=== PATIENT | female | born 1930 | race Caucasian/White ===

== ENCOUNTER → 2016-07-09 | Outpatient (CLI) | payer OTHER ==
[2016-07-09 12:07] LABS: BASOPHILS # (AUTO) 0.05 10*3/UL; BASOPHILS % (AUTO) 1.3 % (0-1); EOSINOPHILS % (AUTO) 9.4 % (0-8); HEMOGLOBIN 13.7 g/dL (12.0-16.0); IMM GRAN % (AUTO) 0 % (0-5); IMM GRAN# (AUTO) 0 10*3/UL; LYMPHOCYTES # (AUTO) 0.97 10*3/uL; LYMPHOCYTES % (AUTO) 26.1 % (10-50); MEAN CORPUSCULAR HEMOGLOBIN 30.9 PG (27-31); MEAN CORPUSCULAR HGB CONC 33.4 g/dL (33-37); MEAN PLATELET VOLUME 10.1 FL (7.4-12.2); MONOCYTES % (AUTO) 8.1 % (5-15); NEUTROPHILS # (AUTO) 2.04 10*3/UL; NEUTROPHILS % (AUTO) 55.1 % (50-80); RED BLOOD COUNT 4.43 10^6/uL (4.20-5.40); WHITE BLOOD COUNT 3.71 10^3/uL (4.8-10.8)
[2016-07-09 12:10] LABS: PLATELET MORPHOLOGY COMMENT NORMAL MORPHOLOGY (NORM)
[2016-07-09 12:19] LABS: BILIRUBIN,TOTAL 0.6 mg/dL (0.3-1.2); BUN/CREATININE RATIO 38.33 (6-20); CALCIUM 9.7 mg/dL (8.7-10.7); CREATININE 0.6 mg/dL (0.50-1.20); POTASSIUM 4.5 meq/L (3.8-5.2); TOTAL PROTEIN 7.1 g/dL (6.1-8.0)
== END ==
LOC: MOB LAB 10:40
PROVIDERS: ATTEND Internal Medicine
DX: I10 Essential (primary) hypertension (principal); R42 Dizziness and giddiness; E78.5 Hyperlipidemia, unspecified
CPT/HCPCS: 36415; 80053; 84443; 85025

== ENCOUNTER → 2017-01-07 | Outpatient (CLI) | payer OTHER | LOC: MMPC 11:11 | PROVIDERS: ATTEND Internal Medicine | DX: I10 Essential (primary) hypertension (principal) | CPT/HCPCS: 99213; G0463 ==

== ENCOUNTER 2017-05-24 16:20 | Inpatient (IN) ==
[2017-05-24] MEDS ORDERED: Sodium Chloride 0.9% 1,000 ML PRIMARY IV ONE (16:46)
[2017-05-24 17:25] LABS: BASOPHILS % (AUTO) 0.4 % (0-1); EOSINOPHILS % (AUTO) 6.2 % (0-8); Hematocrit [HCT] 40.6 % (37.0-47.0); Hemoglobin [HGB] 13.6 g/dL (12.0-16.0); MEAN CORPUSCULAR HEMOGLOBIN 31.6 PG (27-31); MEAN CORPUSCULAR HGB CONC 33.5 g/dL (33-37); MEAN CORPUSCULAR VOLUME 94 FL (81-99); MEAN PLATELET VOLUME 7.2 FL (7.4-12.2); NEUTROPHILS % (AUTO) 61.1 % (50-80)
[2017-05-24 17:26] LABS: BASOPHILS # (AUTO) 0.02 10*3/UL; LYMPHOCYTES # (AUTO) 1.24 10*3/uL; MONOCYTES # (AUTO) 0.34 10*3/UL (0.3-0.8); PLATELET MORPHOLOGY COMMENT NORMAL MORPHOLOGY (NORM); RBC MORPHOLOGY COMMENT NORMAL MORPHOLOGY (NORM); WBC MORPHOLOGY COMMENT NORMAL MORPHOLOGY (NORM)
[2017-05-24 17:30] LABS: BLOOD UREA NITROGEN 25 mg/dL (7-22); BUN/CREATININE RATIO 41.66 (6-20); SERUM ALBUMIN 4.2 g/dL (3.5-4.8)
--- NOTE | 2017-05-24 19:12 | PDOC ---
HPI - History of Present Illness Date of Service: 05/24/17 Time of Service: 19:00 Chief Complaint: Right hip pain History of Present Illness: This very pleasant 87-year-old female who is lucid, but somewhat confused on details with some stress from today, who was feeding her cat earlier and bent over to move the cat food when she felt a sudden pain in her right hip. She has been disoriented with some of the pain, but was able to call her friend and she was brought into the emergency room and found to have a right hip dislocation. She's had a prior right hip replacement and a dislocated twice in 2013 this being the third episode overall. There apparently was some discussion about a revision in the past and the patient was told she was a non- candidate but I am not aware what those discussions were. Overall, in addition to her hip pain which seems better controlled with morphine currently, she denies any chest pain, shortness breath, nausea or vomiting. She reaches metabolic equivalents of greater than 4. She does not have any history of stroke, kidney disease, or congestive heart failure, and would be a candidate to proceed with reduction of her hip under sedation or anesthesia with her age being her biggest risk factor for any procedure. In terms of her mental status , I would like to see where she is post surgery and with her hip relocated to determine how much of a risk she would be for any revision down the road from a cognitive standpoint. Past Medical History Medical History: 1. DVT in the left lower extremity. 2. GERD. 3. Cognitive impairment, worse in the setting of hip dislocation. 4. Hypertension. 5. Hyperlipidemia. 6. Osteoporosis. 7. Gait abnormality. 8. Overactive bladder with urge incontinence, not responsive to medications. 9. Hiatal hernia Surgical History: 1. Bilateral hip replacements. 2. Spine surgery. 3. Total vaginal hysterectomy with bilateral salpingo-oophorectomy. 4. Tonsillectomy. 5. Cervical vertebral fusion. 6. Tonsillectomy Pertinent Family History: Mother had diabetes and father had prostate cancer Past Social History: Patient does not smoke or drink. Lives alone. Has 3 children. Patient is retired nurse Tobacco Use: Never Smoker In the Past 12 Months, Have Used or Abuse Any of the Following Substance: None Alcohol Use: None Medication / Allergies Home Medications: Home Medications Medication Instructions Recorded Confirmed Type Calcium Carbonate [Tums] 1 - 2 tab PO Q6H PRN #0 tab.chew 01/08/14 05/24/17 Rx Acetaminophen [Tylenol] 650 mg PO Q4H PRN #25 tab 07/27/14 05/24/17 Rx Nitroglycerin SL Tab [Nitrostat 0.4 mg SL q5min x 3doses PRN #50 02/14/1505/24 History SL Tab] tab Allergies/Adverse Reactions: Allergies 3 Allergy/AdvReac Type Severity Reaction Status Date / Time codeine [Codeine] AdvReac Intermediate nausea/vomi Verified 05/24/17 17:04 ting morphine AdvReac Intermediate nausea/vomi Verified 05/24/17 17:04 ting Review of Systems - Constitutional Constitutional: REPORTS: Other (Negative for fever and chills. She states she has lost weight but states it's intentional.) - Respiratory Respiratory: REPORTS: Negative System Review - Cardiovascular Cardiovascular: REPORTS: Negative System Review - Gastrointestinal Gastrointestinal / Abdominal: REPORTS: Constipation (Occasional constipation otherwise negative system review) - Genitourinary Genitourinary: REPORTS: Negative System Review - Musculoskeletal Musculoskeletal: REPORTS: Negative System Review, See HPI - Neurological Neurologic: REPORTS: Negative System Review - Psychiatric Psychiatric: REPORTS: Negative System Review Exam - Vitals Vital Signs: Vital Signs Temperature 97.6 F Temperature Source Temporal Artery Scan Pulse Rate [Pulse Oximeter 90 Right] Respiratory Rate 16 Blood Pressure [Right Arm] 163/80 Pulse Ox 95 Oxygen Delivery Method Room Air Height 5 ft 6 in Weight 115 lb - General General Appearance: No Acute Distress, Cooperative - Head Head Exam: Normal Inspection, Normocephalic, Atraumatic - Eye Eye Exam: POSITIVE: No Scleral Icterus - ENT ENT Exam: POSITIVE: Mucous Membranes Moist - Neck Neck Exam: Normal Inspection, No Tenderness, No Lymphadenopathy, No Thyromegaly - Respiratory Respiratory Exam: POSITIVE: Clear to Auscultation - Bilaterally, Breathing Non Labored - Cardiovascular Cardiovascular Exam: POSITIVE: RRR, No Murmur, No Clicks, No Gallops, No Rubs, No JVD - GI/Abdominal GI/Abdominal Exam: POSITIVE: Normal Bowel Sounds, Non Tender, Non Distended, Soft - Rectal Rectal Exam: POSITIVE: Deferred - External Exam: POSITIVE: Deferred Exam: POSITIVE: Deferred - Extremities Extremities Exam: POSITIVE: No Clubbing Present, No Edema Present, No Cyanosis Present Additional Extremities Exam Details: Right hip is dislocated and the right hand hip appears externally rotated with slightly shorter limb on right side. - Neurological Neurological Exam: POSITIVE: Alert, Oriented x 3 (She is oriented to person, oriented to place, and oriented to her hip not feeling well.), No Facial Droop, Speech Intact / Clear Results - Labs CBC and BMP: 05/24/17 16:55 05/24/17 16:55 Additional Lab Results: Laboratory Results 05/24/17 05/24/17 Range/Units 16:55 16:55 WBC 4.9 (4.8-10.8) 10^3/uL RBC 4.30 (4.20-5.40) 10^6/uL Hgb 13.6 (12.0-16.0) g/dL Hct 40.6 (37.0-47.0) % MCV 94 (81-99) FL MCH 31.6 H (27-31) PG MCHC 33.5 (33-37) g/dL RDW Coeff of Nohemi 12.5 (11.5-14.5) % Plt Count 245 (140-350) 10*3/uL MPV 7.2 L (7.4-12.2) FL Neut % (Auto) 61.1 (50-80) % Lymph % (Auto) 25.3 (10-50) % Hartley % (Auto) 7.0 (5-15) % Eos % (Auto) 6.2 (0-8) % Baso % (Auto) 0.4 (0-1) % Neut # (Auto) 3.00 10*3/UL Lymph # (Auto) 1.24 10*3/uL Hartley # (Auto) 0.34 (0.3-0.8) 10*3/UL Eos # (Auto) 0.30 10*3/UL Baso # (Auto) 0.02 10*3/UL WBC Morphology Comment Normal morphology (NORM) Plt Morphology Comment Normal morphology (NORM) RBC Morph Comment Normal morphology (NORM) Sodium 143 (135-145) meq/L Potassium 4.0 (3.8-5.2) meq/L Chloride 105 (98-112) meq/L Carbon Dioxide 26 (23-33) meq/L Anion Gap 12 (5-20) BUN 25 H (7-22) mg/dL Creatinine 0.6 (0.50-1.20) mg/dL BUN/Creatinine Ratio 41.66 H (6-20) Glucose 122 H (78-110) mg/dL Calculated Osmolality 300.0 H (267-292) mOsm/kg Calcium 9.6 (8.7-10.7) mg/dL Total Bilirubin 0.4 (0.3-1.2) mg/dL AST 35 (8-39) IU/L ALT 27 (9-52) IU/L Alkaline Phosphatase 52 (38-126) IU/L Total Protein 7.0 (6.1-8.0) g/dL Albumin 4.2 (3.5-4.8) g/dL Globulin 2.8 (2.50-4.10) g/dL Albumin/Globulin Ratio 1.50 (1.3-2.0) mg/g Assessment and Plan - Patient Problems (1) Recurrent dislocation, right hip Current Visit: Yes Status: Acute Code(s): M24.451 - Recurrent dislocation, right hip (2) Body mass index (BMI) of 19 or less in adult Current Visit: Yes Status: Acute Code(s): Z68.1 - Body mass index (BMI) 19.9 or less, adult (3) History of DVT (deep vein thrombosis) Current Visit: Yes Status: Acute Code(s): Z86.718 - Personal history of other venous thrombosis and embolism - Assessment / Plan Additional Assessment/Plan Details: Admit the patient for observation. Consult orthopedics, Dr. Burgos plans to do a reduction in the operating room. I don't know if that'll be under conscious sedation or general anesthesia , but I think the patient should be cleared to proceed with the procedure based on AHA/ACC perioperative evaluation guidelines. Postoperative risk stratification will be instituted. Pain control and antiemetics. We'll discuss with orthopedics and a daughter tomorrow regarding any recommendations for eventual or future revision. I would like to get a better idea of the patient's cognitive status as she would certainly be a risk for worsening cognitive status under general anesthesia with any future surgical procedures. It would probably warrant an EKG, possibly a stress test, to further evaluate cardiac status, but based on her history and lack of any anginal symptoms, lack of congestive heart failure, lack of renal problems, the patient would be a candidate to proceed with operative care.
[2017-05-24] MEDS ORDERED: KETAMINE 100 MG/1 ML - 5 ML ONE (19:34)
[2017-05-24] MEDS ORDERED: PROPOFOL 10 MG/1 ML (200 MG/20 ML) VIAL IV ONE (19:34)
[2017-05-24] MEDS ORDERED: fentaNYL Inj 100 MCG/2 ML VIAL ONE (19:35)
[2017-05-24] MEDS ORDERED: MIDAZOLAM 5 MG/1 ML ONE (19:35)
--- NOTE | 2017-05-24 19:42 | CONSULT ---
Consult Note - Consult Consult Date: 05/24/17 Reason for Consult: PreOp Consulation : Ortho Requesting Physician: Dr. Stone Primary Care Provider: Max Owens MD - History of Present Illness History of Present Illness: Patient is an 87-year-old female who has had a total hip replacement many years ago who presents to the emergency room after sustaining a right hip dislocation. This is her fourth hip dose location. She had a series of 3 dislocations fairly are close together in the past and on her last dislocation 2 years ago was recommended that she get her hip revised. Patient apparently was set up to see someone down in [place] for evaluation and possible revision however the person who attends her today states that someone said that she was not a candidate. It is unclear whether the person who stated that she was not a candidate was a physician or a family member. Patient denies any numbness or tingling. She does not recall any of the previous dislocations. Patient lives at home and was at home bending over feeding her dog when the hip dislocated. Past Medical History Medical History: 1. DVT in the left lower extremity. 2. GERD. 3. Cognitive impairment, worse in the setting of hip dislocation. 4. Hypertension. 5. Hyperlipidemia. 6. Osteoporosis. 7. Gait abnormality. 8. Overactive bladder with urge incontinence, not responsive to medications. 9. Hiatal hernia Surgical History: 1. Bilateral hip replacements. 2. Spine surgery. 3. Total vaginal hysterectomy with bilateral salpingo-oophorectomy. 4. Tonsillectomy. 5. Cervical vertebral fusion. 6. Tonsillectomy Pertinent Family History: Mother had diabetes and father had prostate cancer Past Social History: Patient does not smoke or drink. Lives alone. Has 3 children. Patient is retired nurse Tobacco Use: Never Smoker In the Past 12 Months, Have Used or Abuse Any of the Following Substance: None Alcohol Use: None Medication / Allergies Home Medications: Home Medications Medication Instructions Recorded Confirmed Type Calcium Carbonate [Tums] 1 - 2 tab PO Q6H PRN #0 tab.chew 01/08/14 05/24/17 Rx Acetaminophen [Tylenol] 650 mg PO Q4H PRN #25 tab 07/27/14 05/24/17 Rx Nitroglycerin SL Tab [Nitrostat 0.4 mg SL q5min x 3doses PRN #50 02/14/1505/24 History SL Tab] tab Allergies/Adverse Reactions: Allergies 3 Allergy/AdvReac Type Severity Reaction Status Date / Time codeine [Codeine] AdvReac Intermediate nausea/vomi Verified 05/24/17 17:04 ting morphine AdvReac Intermediate nausea/vomi Verified 05/24/17 17:04 ting Exam - - Exam: Examination shows that the patient comes in today she is alert and oriented 3 she is able to answer questions appropriately she is quite pleasant. She has good motion of her upper extremities and motion of the right lower extremity is limited it is flexed across her body and internally rotated and shortened. Her sensory exam of the lower extremity is good motor examination is also intact with a normal sensory exam with good pulses and brisk refill. She has no sneeze swelling or edema she has no bruising or ecchymosis. Patient denies any pain around the pelvis no pain around the knee tibia ankle or foot. She denies any back pain with palpation of pain around the pelvis except for around the right hip region. Radiographs of the femur showed no evidence of femur fracture she has a total knee in place with a polyethylene tibial component which does not appear to have any significant issue but looks similar to previous x-rays of the knee. As far as the hip if she has what appears to be a dislocation likely posterior looking at its view there is no good lateral view that we can see her. - Vitals Vital Signs: Vital Signs Temperature 97.6 F Temperature Source Temporal Artery Scan Pulse Rate [Pulse Oximeter 90 Right] Respiratory Rate 16 Blood Pressure [Right Arm] 163/80 Pulse Ox 95 Oxygen Delivery Method Room Air Height 5 ft 6 in Weight 52.163 kg Results - Labs CBC and BMP: 05/24/17 16:55 05/24/17 16:55 Assessment and Plan - Assessment / Plan Additional Assessment/Plan Details: Impression: Right hip dislocation based on leg position and x-rays posterior dislocation, multiple times Plan: At this point we will proceed with getting the patient set up for a closed reduction and we will perform an exam under anesthesia. We will look at getting her into an abduction pillow and then eventually a abduction brace. The person who attends her today states that she is not sure if there is a brace up also patient states that she does not have an abduction brace though it appears when she dislocated previously she was fitted for one. Patient does not recall the dislocation back in 2013 and apparently in 2015 also. Patient's daughter will be available tomorrow may be she has more information on the brace and whether this is still available. If not we'll need to get her fitted for this. We will see about getting her potentially set up to see us specialist either in the [place] area or [place]. We discussed the patient's current condition and clinical findings as it pertains to the current situation. Surgical versus nonsurgical options risks and benefits were discussed and reviewed. Options moving forward include but are not limited to continued choice to live with their current condition; evaluate their current condition further with imaging studies and/or diagnostic testing, etc.; treat problem/problems with surgical versus nonsurgical methods. The patient demonstrates a clear understanding of our discussion. All questions were answered. Surgical versus nonsurgical options risks and benefits were discussed and reviewed. The risks include but are not limited to bleeding, infection, neurovascular damage, wound problems, deep vein thromboses, pulmonary embolism, fracture, dislocation, nonunion/malunion, need for further surgery, need for blood transfusion, and loss of life and limb. Certainly any surgical procedure may not improve symptoms and potentially could makes symptoms worse. There are no guarantees implied with the discussion of surgical treatment. All questions are answered and the patient wishes to proceed with surgical treatment. - Time/Visit Time Spent With Patient: 15-25 Minutes
--- NOTE | 2017-05-24 19:45 | ORTHO.OP ---
- - -: See Dictated Operative Report Procedure Codes - Hip Procedures Secondary Hip Procedure: Other CPT Code(s) (22360)
[2017-05-24] MEDS ORDERED: CALCIUM CARBONATE 500 MG (TUMS) CHEWABLE TABLET PO PRN ×2 (19:49→20:34)
[2017-05-24] MEDS ORDERED: ONDANSETRON 4 MG/2 ML VIAL IVP PRN ×2 (19:49→20:34)
[2017-05-24] MEDS ORDERED: DOCUSATE 100 MG CAPSULE PO PRN ×2 (19:49→20:34)
[2017-05-24] MEDS ORDERED: LIDOCAINE W/ SODIUM BICARB 0.5 ML SYR SUBD PRN ×2 (19:49→20:34)
[2017-05-24] MEDS ORDERED: NORMAL SALINE 10 ML SYRINGE FLUSH IVP PRN ×2 (19:49→20:34)
[2017-05-24] MEDS ORDERED: HYDROcodone-APAP 5 MG -325 MG TABLET PO PRN ×2 (19:49→20:34)
[2017-05-24] MEDS ORDERED: ACETAMINOPHEN 325 MG TABLET PO PRN ×2 (19:49→20:34)
[2017-05-24] MEDS ORDERED: HYDROmorphone 2 MG/1 ML IVP PRN ×2 (19:49→20:34)
--- NOTE | 2017-05-24 20:15 | CRNA.PROGR ---
Anesthesia Time - - Start date: 05/24/17 End date: 05/24/17 - Procedure/Recovery Time Anesthesia : Time In: 19:41 Anesthesia : Time Out: 20:03 Anesthesia : Total Time: 22 - Total Anesthesia Time Total Anesthesia Time (minutes): 22 - Other Weight: 52.163 kg Height: 5 ft 6 in Body Mass Index (BMI): 18.6 Physical Status: P2 Anesthesia Type: MAC (Reduction or R hip dislocation)
--- NOTE | 2017-05-24 20:16 | CRNA.PROGR ---
Post Anesthesia Phase II - Post Anesthesia Phase II Patient Stable and Discharged To: Med/Surg Care Assumed By Surgeon: Donnie Burgos MD Temperature: 97.6 F Pulse Rate: 82 Respiratory Rate: 16 Pulse Ox: 95 Total Makeda Score at Discharge: 9 Post Anesthesia Discharge Criteria Met: Yes
--- NOTE | 2017-05-24 23:05 | PDOC ---
Hip Injury/Pain HPI - General Chief Complaint: Lower Extremity Problem/Injury Stated Complaint: FALL, RIGHT LEG SHORTENING Date Seen by Provider: 05/24/17 Time Seen by Provider: 16:30 Source: POSITIVE: Patient Exam Limitations: POSITIVE: No limitations Nurse's Notes Reviewed & Considered: Yes EMS Report Reviewed & Considered: Unavailable - History of Present Illness Initial Comments: The patient is an [age] year old female. Patient states that she was sitting on her bed and bent forward and slipped off the bed onto her right hip. She had immediate pain to this area. She is brought to the emergency room by ambulance. Patient has a history of having had bilateral hip replacements and bilateral knee replacements. Patient was unable to get up. She denies any associated head, neck, back, chest or abdominal pain. No paresthesia or radicular symptoms. Have you received a tetanus shot in the past 10 years?: Yes Location: Right Hip Timing: REPORTS: Abrupt Duration: 1/2 hour Severity: Moderate Location at Time of Onset: REPORTS: Home Context: REPORTS: Fall, Lost Balance Concurrent Injuries: DENIES: Neck, Head, Back, Chest, Abdomen, Extremities, Face , Other Quality: REPORTS: "Pain" Modifying Factors: REPORTS: Movement Symptoms Prior to Fall: DENIES: Fever, Chills, Diaphoresis, Diaphoresis, Chest Pain, Weakness, Rapid Heart Rate, Nausea, Vomiting, Diarrhea, Dizziness, Light- Headedness, Headache, Seizure, Other Subsequent Symptoms: DENIES: Sensory Loss, Motor Loss, Numbness, Weakness, Bowel / Bladder Problems, Other Similar Symptoms Previously: Yes (patient states that she previously dislocated this hip) Recent Care Received: REPORTS: Denies Any Prior Injuries Related to Current Complaint?: No - Patient Home Medications Home Medications: Home Medications Calcium Carbonate [Tums] 1 - 2 tab PO Q6H PRN #0 tab.chew 01/08/14 Acetaminophen [Tylenol] 650 mg PO Q4H PRN #25 tab 07/27/14 Nitroglycerin SL Tab [Nitrostat SL Tab] 0.4 mg SL q5min x 3doses PRN #50 tab 02/14/15 - Patient Allergies Allergies/Adverse Reactions: Allergies 3 Allergy/AdvReac Type Severity Reaction Status Date / Time codeine [Codeine] AdvReac Intermediate nausea/vomi Verified 05/24/17 17:04 ting morphine AdvReac Intermediate nausea/vomi Verified 05/24/17 17:04 ting Past Medical History - heen HEENT History: Cataracts, Hard of Hearing, Dentures/Partials Cardiovascular History: Hypertension, Angina Respiratory History: Denies History Gastrointestinal History: GERD Genitourinary History: Recurrent UTI, Incontinence Additional Genitourinary History: HX UTI Endocrine History: Denies History Musculoskeletal History: Limited ROM, Osteoarthritis, Other (please comment) Prosthesis or Implant: No Additional Musculoskeletal History: BILAT HIP REPLACEMENT AND NOW HAS SWAYED LEG AND RESULTING LIMP. REQUIRES WALKER...recurring hip dislocation. Neurological History: Denies History Blood Disorders: Anemia Psychiatric History: Depression Additional Psychiatric History: 06/16/13 FRIEND REPORTS PT VERY DEPRESSED D/T JUST LOST HER DOG. CRYING AND STATED SHE WANTED TO GO BEFORE HIM History of Sexually Transmitted Diseases: No Female Reproductive History: Denies History Obstetrical History: Denies History Cancer History: Denies History In Past Year Been Physically Harmed or Verbally Threatened: No History of MDRO: No History of Other Communicable Diseases: No Tobacco Use: Never Smoker Alcohol Use: None In the Past 12 Months, Have Used or Abuse Any Substance: None Previous Surgical History: Yes Type / Date of Surgery: HYSTERECTOMY. BILAT TOTAL HIPS Anesthesia Reactions: No Malignant Hyperthermia: No Significant Family History: No pertinent family hx Past Medical History Reviewed: Reviewed - No Changes ROS - Limitations ROS Limitations: No Limitations Constitution: REPORTS: Denies Symptoms Cardiovascular: REPORTS: Denies Cardiac Symptoms Respiratory: REPORTS: Denies Resp Symptoms Neurological: REPORTS: Denies Neuro Symptoms Gastrointestinal: REPORTS: Denies GI Symptoms Endocrine: REPORTS: Denies Symptoms Musculoskeletal: REPORTS: Joint Pain (Right hip), Recent Injury (As above) Genitourinary: REPORTS: Denies Symptoms Eyes: REPORTS: Denies Symptoms ENT: REPORTS: Denies Symptoms Skin: REPORTS: Denies Skin Symptoms Lympathic: REPORTS: Denies Lympathic Symptoms Immunologic: POSITIVE: Denies Symptoms Psychiatric: POSITIVE: Denies Psych Symptoms Hip Injury / Pain Exam - General Appearance General Appearance: POSITIVE: Alert, Cooperative, No Evidence of Trauma, Mild Distress. NEGATIVE: No Acute Distress - Lower Extremity Extremities: POSITIVE: No Pedal Edema, No Obvious Injury to Knee, No Deformity to Knee, Normal Tendon Exam, Shortening of Leg, External Rotation of Leg, Hip Pain on Leg Movement. NEGATIVE: Normal ROM, Hip/Knee Tenderness, Pedal Edema, Ecchymosis, Erythema, Soft Tissue Injury, Positive Nydia's Sign - HEENT HEENT: POSITIVE: Head Inspection Nml, Eyes Inspection Nml, Ears Inspection Nml, Nose Inspection Nml, Oral/Dental Inspect. Nml, Pharynx Inspect. Nml, PERRL, EOMI - Pupil Size Pupil Size: 4 mm: Bilateral - Neck/Back Neck: POSITIVE: Normal Inspection, Non-Tender Back: POSITIVE: Normal Inspection, No CVA Tenderness, Non Tender, Painless ROM, No Vertebral Tenderness - Respiratory / CVS Cardiovascular: POSITIVE: Regular Rate and Rhythm, Heart Sounds Normal, Equal Pulses, Strong Pulses, No Murmur, No Gallop, No JVD, No Pulse Deficit Respiratory: POSITIVE: Chest Non Tender, No Ecchymosis, Breath Sounds Normal, No Respiratory Distress Peripheral Pulses: Radial (R): 2+, Radial (L): 2+, Dorsalis-pedis (R): 2+, Dorsalis-pedis (L): 2+ - Abdomen Abdomen: Soft: (All Quadrants), Normal Bowel Sounds: (All Quadrants), Denies Tenderness: (All Quadrants), No Splenomegaly: (All Quadrants), No Hepatomegaly: (All Quadrants), No Guarding: (All Quadrants), No Rebound: (All Quadrants), No Palpable Pulse: (All Quadrants), No Palpabale Mass: (All Quadrants), No Distention: (All Quadrants), No Rigidity: (All Quadrants) - Skin Skin: POSITIVE: Color Normal, No Rash, Warm, Dry, Normal Palpation - Neuro/Psych Neuro / Psych: POSITIVE: Oriented x 3, Neuro Grossly Intact, Mood Appropriate, Affect Appropriate Images - Complete Complete: 1 - Pain on palpation; right leg shortened Hip Injury / Pain Progress - Results Reviewed by me Xrays/CTs/US Reviewed by me: Yes Discussed with Radiologist: No Radiology Findings: X-ray right hip and femur shows dislocation of the right hip ; no fractures seen. Lab Results Reviewed by Me: Yes CBC and BMP: 05/24/17 16:55 05/24/17 16:55 - Patient's Progress Pain Medication Addressed: POSITIVE: Yes, Patient Refused School/Work Release Addressed: POSITIVE: Not Applicable Re-Examine Time: 17:30 Re-Examine Comment: Case discussed with Dr. Browne, orthopedic surgeon, who will come to the emergency room to further evaluate and treat. Patient declines analgesia. Status: POSITIVE: Unchanged, Re-Examined - Consult Consult (If Yes, Name of Consulting MD & Time Called): Yes (Dr. Burgos, orthopedist, [id number]) Consulting MD will see pt:: POSITIVE: In ED, [facility] [place] Admit Counseled: POSITIVE: Patient, RE: Lab Results, RE: Radiology Results, RE: DX, RE : Need for F/U Patient Care Time - Estimated PCT Patient Care Time (In Minutes): 45 Vital Signs - Recent Vital Signs Vital Signs: Vital Signs (Last 8 hours) Temp Pulse Pulse Resp BP BP Pulse Ox 05/24/17 21:19 80 05/24/17 21:16 80 16 131/65 99 05/24/17 21:00 97.9 F 80 20 131/65 99 05/24/17 20:50 82 20 144/76 98 05/24/17 20:20 97.9 F 83 20 126/80 97 05/24/17 20:16 97.6 F 82 16 95 05/24/17 19:38 97.2 F 97 18 156/72 97 05/24/17 17:06 97.6 F 90 16 163/80 95 - VS Reviewed Vital Signs Reviewed: Yes Discharge Clinical Impression: Closed traumatic dislocation of hip Discharge Disposition: Admit to Inpatient Condition: Fair Date Decision to Admit to Inpatient: 05/24/17 Time Decision to Admit to Inpatient: 17:30
--- NOTE | 2017-05-25 10:56 | ORTHO.PROG ---
Last Taken Vital Signs: Vital Signs - Last Taken Temperature 97.2 F 05/25/17 07:24 Pulse Rate 69 05/25/17 07:24 Respiratory Rate 16 05/25/17 07:24 Blood Pressure 121/66 05/25/17 07:24 Pulse Ox 94 05/25/17 07:24 Subjective: Patient notes right hip pain well-controlled today Objective: Patient has good motor and sensory of the foot and ankle. She notes some soreness with palpation about the hip. Rotation is normal. Leg lengths look good Laboratory Results 05/24/17 05/24/17 Range/Units 16:55 16:55 WBC 4.9 (4.8-10.8) 10^3/uL RBC 4.30 (4.20-5.40) 10^6/uL Hgb 13.6 (12.0-16.0) g/dL Hct 40.6 (37.0-47.0) % MCV 94 (81-99) FL MCH 31.6 H (27-31) PG MCHC 33.5 (33-37) g/dL RDW Coeff of Nohemi 12.5 (11.5-14.5) % Plt Count 245 (140-350) 10*3/uL MPV 7.2 L (7.4-12.2) FL Neut % (Auto) 61.1 (50-80) % Lymph % (Auto) 25.3 (10-50) % Brooks % (Auto) 7.0 (5-15) % Eos % (Auto) 6.2 (0-8) % Baso % (Auto) 0.4 (0-1) % Neut # (Auto) 3.00 10*3/UL Lymph # (Auto) 1.24 10*3/uL Brooks # (Auto) 0.34 (0.3-0.8) 10*3/UL Eos # (Auto) 0.30 10*3/UL Baso # (Auto) 0.02 10*3/UL WBC Morphology Comment Normal morphology (NORM) Plt Morphology Comment Normal morphology (NORM) RBC Morph Comment Normal morphology (NORM) Sodium 143 (135-145) meq/L Potassium 4.0 (3.8-5.2) meq/L Chloride 105 (98-112) meq/L Carbon Dioxide 26 (23-33) meq/L Anion Gap 12 (5-20) BUN 25 H (7-22) mg/dL Creatinine 0.6 (0.50-1.20) mg/dL BUN/Creatinine Ratio 41.66 H (6-20) Glucose 122 H (78-110) mg/dL Calculated Osmolality 300.0 H (267-292) mOsm/kg Calcium 9.6 (8.7-10.7) mg/dL Total Bilirubin 0.4 (0.3-1.2) mg/dL AST 35 (8-39) IU/L ALT 27 (9-52) IU/L Alkaline Phosphatase 52 (38-126) IU/L Total Protein 7.0 (6.1-8.0) g/dL Albumin 4.2 (3.5-4.8) g/dL Globulin 2.8 (2.50-4.10) g/dL Albumin/Globulin Ratio 1.50 (1.3-2.0) mg/g Assessment: 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 In the meantime with mobilization we can use a knee immobilizer and weightbearing as tolerated avoid internal rotation of the leg. Patient's daughter is to visit today though some word is calm apparently vet she may not be available till tomorrow. Would like to develop plan prior to Discharge home whether they would like to see a specialist to have revision. Patient lives independently and I think needs to have family member present initially when she goes home.
--- NOTE | 2017-05-25 19:55 | PDOC(PROG) ---
Date and Time of Service: 05/25/2017 Interval History: discussed situation with daughter, patient. hip hurts today. no chest pain, no SOB, no nausea or vomiting. patient not clear if she wants hip revision. Objective : Data - Labs CBC and BMP: 05/24/17 16:55 05/24/17 16:55 Objective : Exam - General General Appearance: No Acute Distress, Cooperative Additional General Exam Details: Vital Signs (24 hrs) Temp Pulse Pulse Resp BP BP Pulse Ox 05/25/17 16:44 98 F 82 18 140/67 95 05/25/17 11:50 97.8 F 75 18 138/63 95 05/25/17 07:24 97.2 F 69 16 121/66 94 05/25/17 05:00 97.2 F 66 18 123/78 96 05/25/17 04:22 93 05/25/17 01:19 97.0 F 85 16 151/77 96 05/24/17 21:19 80 05/24/17 21:16 80 16 131/65 99 05/24/17 21:00 97.9 F 80 20 131/65 99 05/24/17 20:50 82 20 144/76 98 05/24/17 20:20 97.9 F 83 20 126/80 97 05/24/17 20:16 97.6 F 82 16 95 - Eye Eye Exam: No Scleral Icterus - ENT ENT Exam: Mucous Membranes Moist - Respiratory Respiratory Exam: Clear to Auscultation - Bilaterally, Breathing Non Labored - Cardiovascular Cardiovascular Exam: RRR, No Murmur, No Clicks, No Gallops, No Rubs, No JVD - GI/Abdominal GI/Abdominal Exam: Normal Bowel Sounds, Non Tender, Non Distended, Soft - Extremities Extremities Exam: No Clubbing Present, No Edema Present, No Cyanosis Present Additional Extremities Exam Details: has abductor pillow in place. - Neurological Neurological Exam: Alert, Oriented x 3, No Facial Droop, Speech Intact / Clear Assessment and Plan - Patient Problems (1) Recurrent dislocation, right hip Current Visit: Yes Status: Acute Code(s): M24.451 - Recurrent dislocation, right hip (2) Body mass index (BMI) of 19 or less in adult Current Visit: Yes Status: Acute Code(s): Z68.1 - Body mass index (BMI) 19.9 or less, adult (3) History of DVT (deep vein thrombosis) Current Visit: Yes Status: Acute Code(s): Z86.718 - Personal history of other venous thrombosis and embolism - Assessment / Plan Additional Assessment/Plan Details: admit as inpatient--this injury is not much different than a hip fracture, may take 6 weeks to stabilize hip if patient does not opt for revision, and could develop worse problems if not monitored, such as DVT or other issues. Social support in [facility] is very limited. pain control may also require parenteral pain medications. will need PT and OT.
[2017-05-25] MEDS: HEPARIN 5000 UNIT/1 ML SUBCUT SCH (20:30)
[2017-05-26] MEDS: HEPARIN 5000 UNIT/1 ML SUBCUT SCH ×3 (04:47→20:53)
--- NOTE | 2017-05-26 10:51 | PT.PROG ---
Progress Note Progress Note: S: Pt. states she is doing well. She expresses that she doesn't remember having her brace before. She is concerned on how she will put it on at home. O: Treatment consisted of functional activities: bed mobility with min assist x 1, sit to stands x 5, donning Abductor brace with mod assist x 2 for safety. Pt. then ambulated in her room x 15 feet with brace on. then instructed Rodrigo MUÑIZ and Argelia WEISSA on donning and doffing brace. Instructed that, unless we hear differently from Dr. Burgos, to place the abductor pillow and the knee immobilizer on while in bed. Pt. was placed in her recliner with call button with in reach and nursing notified. A: Pt. is overall doing well. She does require cuing for safety as she does have memory deficits noted. Her brace appears to still fit her appropriately. Her ambulation distance was not far, but we will continue to work up to that. P: Continue per POC to increase strength and activity tolerance. Elissa Marie, BLACKING MACHINE OPERATOR
--- NOTE | 2017-05-26 12:02 | ORTHO.PROG ---
Last Taken Vital Signs: Vital Signs - Last Taken Temperature 98.2 F 05/26/17 11:44 Pulse Rate 66 05/26/17 11:44 Respiratory Rate 18 05/26/17 11:44 Blood Pressure 91/61 05/26/17 11:44 Pulse Ox 96 05/26/17 11:44 Subjective: Patient notes her right hip pain is less today, patient did have her brace and was fitted input into this Objective: Patient with an abductor hip brace in place skin is healthy no significant swelling motor and sensory exam is nonfocal Assessment: Right total hip replacement with dislocation, multiple times in recent past Plan: Continue with physical therapy and occupational therapy. Mobilize with abductor brace and abductor pillow at night when sleeping. Patient lives at home by herself and will need further rehabilitation before she is able to consider going home. Recommended at least investigation with an orthopedic total joint specialist with consideration of possible hip revision surgery. Family is trying to decide if they would I consider this if this is a case she may not be a surgical candidate but however I think we shouldn't minimal if they wish to try to do something different than the bracing then get an opinion from a specialist to see if a revision would be a solution. As time progresses I think with her mild dementia this will progress unlikely to have more episodes of dislocation.
--- NOTE | 2017-05-26 18:00 | PDOC(PROG) ---
Date and Time of Service: 05/26/2017, 1756 Interval History: no chest pain, SOB, N/V. hip pain is well controlled today. patient leaning towards not doing surgery. daughter not available for discussion today. Objective : Data - Labs CBC and BMP: 05/24/17 16:55 05/24/17 16:55 Objective : Exam - General General Appearance: No Acute Distress, Cooperative Additional General Exam Details: Vital Signs (24 hrs) Temp Pulse Resp BP BP Pulse Ox 05/26/17 16:18 97.7 F 68 18 125/56 97 05/26/17 12:03 131/50 05/26/17 11:44 98.2 F 66 18 91/61 96 05/26/17 08:17 97.9 F 67 17 136/65 92 05/26/17 07:00 67 05/26/17 04:54 98 F 63 20 130/64 96 05/26/17 01:00 97.6 F 73 20 93 05/25/17 20:40 97.1 F 70 20 138/68 94 05/25/17 19:00 70 - Eye Eye Exam: No Scleral Icterus - ENT ENT Exam: Mucous Membranes Moist - Respiratory Respiratory Exam: Clear to Auscultation - Bilaterally, Breathing Non Labored - Cardiovascular Cardiovascular Exam: RRR, No Murmur, No Clicks, No Gallops, No Rubs, No JVD - GI/Abdominal GI/Abdominal Exam: Normal Bowel Sounds, Non Tender, Non Distended, Soft - Extremities Extremities Exam: No Clubbing Present, No Edema Present, No Cyanosis Present - Neurological Neurological Exam: Alert, Oriented x 3, No Facial Droop, Speech Intact / Clear Assessment and Plan - Patient Problems (1) Recurrent dislocation, right hip Current Visit: Yes Status: Acute Code(s): M24.451 - Recurrent dislocation, right hip (2) Body mass index (BMI) of 19 or less in adult Current Visit: Yes Status: Acute Code(s): Z68.1 - Body mass index (BMI) 19.9 or less, adult (3) History of DVT (deep vein thrombosis) Current Visit: Yes Status: Acute Code(s): Z86.718 - Personal history of other venous thrombosis and embolism - Assessment / Plan Additional Assessment/Plan Details: currently, pain is controlled, continue PO and parenteral management for pain PRN. continue PT and OT will discuss with daughter when possible. social situation is complex in that patient lives alone in [place] without family available to go home with patient. discharge would be unsafe. swing bed is likely best option without surgery if patient opts not to do surgery. She is concerned about operative revision due to her age more than anything.
[2017-05-27] MEDS: HEPARIN 5000 UNIT/1 ML SUBCUT SCH ×3 (04:01→21:26)
--- NOTE | 2017-05-27 07:43 | DI ---
XR HIP COMPLETE MIN 2VW U/L,05/24/2017 4:45 PM: Clinical History: Trauma Previous Exam: None at this facility. Findings: 3 views of the right hip are obtained, and demonstrate postsurgical changes consistent with bilateral total hip arthroplasty. There is disarticulation of the right hip. A nonobstructive bowel gas pattern is seen. Diffuse degenerative changes of the lumbar spine are note d. Impression: Disarticulation of the right hip without visible fractures.
--- NOTE | 2017-05-27 07:46 | DI ---
XR FEMUR 2VW,05/24/2017 4:45 PM: Clinical History: Trauma Previous Exam: None at this facility. Findings: 2 views of the right femur are obtained, and demonstrate anatomic alignment without fractures. The hi p is not visualized on this exam. Patient is status post right total knee arthroplasty. Impression: No evidence of knee fracture.
--- NOTE | 2017-05-27 12:49 | PTI REPORT ---
Thank you for the referral of Monty Petty. She was seen on 05/25/17 for an inpatient evaluation secondary to a hip dislocation. SUBJECTIVE: The patient is an 87-year-old female who states that she was feeding her cat yesterday; she bent forward and dislocated her hip. This is now the fourth time she has had such a dislocation. PAST MEDICAL HISTORY: Past medical history can be found in the patient's medical record. OBJECTIVE FINDINGS: Pain: The patient rates her pain as a 3/10 on the verbal analog scale (0=no pain , 10=worst pain). Bed mobility: The patient requires moderate assist x1 when moving from supine to sit Balance: The patient was able to stand bedside; she was a little woozy from some of the medication still. Ambulation: She attempted to take a step but she wasn't able to; we will try again in the morning. ASSESSMENT: Problem List: Increased pain Patient must adhere to weight-bearing precautions Short-Term Goals: To be met by discharge from inpatient: Patient will be able to perform all bed mobility and transfers with stand by assistance. Patient will be able to ambulate household distances with walker, safely and independently. Long-Term Goals: To be met following discharge from inpatient: Patient will be able to return home, safely and independently. TREATMENT PLAN: Patient will be seen B.I.D during the week and one time per day over the weekend as an inpatient to address the above goals and objectives. INITIAL TREATMENT: Treatment today consisted of the initial evaluation activities only. The patient was issued a knee immobilizer and instructed in its proper use and care. We will get a hold of Tony Delgado to get the patient a hip abduction brace. ROBB
--- NOTE | 2017-05-27 15:05 | PDOC(PROG) ---
Date and Time of Service: 05/27/2017, 1500 Interval History: seen with daughter today. no complaints of chest pain, SOB, nausea or vomiting. hip pain is controlled patient is consistently stating to us (myself and daughter) that she does not want surgery for revision. Objective : Data - Labs CBC and BMP: 05/24/17 16:55 05/24/17 16:55 Objective : Exam - General General Appearance: No Acute Distress, Cooperative Additional General Exam Details: Vital Signs (24 hrs) Temp Pulse Resp BP BP Pulse Ox 05/27/17 13:00 97.7 F 66 18 117/53 98 05/27/17 08:56 97.8 F 86 16 109/50 93 05/27/17 04:23 98.2 F 84 16 132/67 95 05/27/17 01:00 97.7 F 63 18 147/79 95 05/26/17 21:00 97.9 F 70 16 152/82 96 05/26/17 19:00 68 05/26/17 16:18 97.7 F 68 18 125/56 97 - Eye Eye Exam: No Scleral Icterus - ENT ENT Exam: Mucous Membranes Moist - Respiratory Respiratory Exam: Clear to Auscultation - Bilaterally, Breathing Non Labored - Cardiovascular Cardiovascular Exam: RRR, No Murmur, No Clicks, No Gallops, No Rubs, No JVD - GI/Abdominal GI/Abdominal Exam: Normal Bowel Sounds, Non Tender, Non Distended, Soft - Extremities Extremities Exam: No Clubbing Present, No Edema Present, No Cyanosis Present Additional Extremities Exam Details: right hip brace in place in chair today. - Neurological Neurological Exam: Alert, No Facial Droop, Speech Intact / Clear Assessment and Plan - Patient Problems (1) Recurrent dislocation, right hip Current Visit: Yes Status: Acute Code(s): M24.451 - Recurrent dislocation, right hip (2) Body mass index (BMI) of 19 or less in adult Current Visit: Yes Status: Acute Code(s): Z68.1 - Body mass index (BMI) 19.9 or less, adult (3) History of DVT (deep vein thrombosis) Current Visit: Yes Status: Acute Code(s): Z86.718 - Personal history of other venous thrombosis and embolism - Assessment / Plan Additional Assessment/Plan Details: at this point, my feeling is patient would do best on swing bed for PT and OT through the duration of her bracing, if possible, with PT and OT. I expressed to the patient and the daughter that the patient likely would be cleared to proceed with a revision should she change her mind from a medical standpoint. However, the patient is concerned that she could as a complication of surgery and does not want to proceed with that route. no change to medications at this time. I discussed with our bilingual social worker counselor, Majo, to see if the patient will qualify for swing bed. Patient does not have social supports at home--closest family member lives in [place], [place], and cannot stay permanently with the patient post discharge.
--- NOTE | 2017-05-27 16:26 | PT.PROG ---
Progress Note Progress Note: S: Pt refused multiple times to participate in PT, eventually agreed to complete activities within her room. Denies any pain or discomfort at this time. O: Treatment consisted of: STS 3x5 to FWW with Mod A x1, seated marching 3x30" B LE, LAQ 3x30" B LE, ankle pumps 3x30" B, ambulation 10' with FWW and Mod A. Pt was left in chair call button within reach NAD. A: Pt required mod A and cuing for STS completion and safety awareness. P:Continue to treat per POC to address established goals and objectives.
[2017-05-28] MEDS: HEPARIN 5000 UNIT/1 ML SUBCUT SCH (04:57)
[2017-05-28 09:08] VITALS: BP 164/74; RESP 14; TEMP 97.8; O2SAT 94
--- NOTE | 2017-05-28 09:51 | DCSUMMARY ---
Hospitalization Summary Admit Date: 05/24/2017 Discharge Date: 05/28/17 Hospital Course: Discharge diagnoses 1. Right hip dislocation status post reduction 2. History of right total hip replacement 3. GERD 4. History of DVT left lower extremity 5. Cognitive impairment 6. history of osteoporosis Hospital course This is a 87 years old female who apparently fell at home was complaining from severe sudden pain in the right hip was brought to the ER was found to have right hip dislocation. She did have a history of right hip replacement and was dislocated twice in 2013 which make this admission the third dislocation. Patient was admitted to the hospital by Dr. Zavala please see his note. Was seen by Dr. Burgos and she had reduction of the dislocation. she is wearing an adductor brace. They did talk to her about consideration for revision surgery however she declined. Patient lives alone. The decision was to continue physical therapy here before she would be able to go home. I saw her the day of discharge she was a denying symptoms except had some discomfort mostly in the thigh and the knee but controlled with pain medication. We thought we can switch her to swing bed continue physical therapy here. Discharge instruction Diet regular activity as tolerated to physical therapy Medications See medical reconciliation sheet Follow-up patient status will be pain to swing bed status to continue physical therapy Exam - Vitals Vital Signs: Vital Signs Temperature 97.8 F Temperature Source Temporal Artery Scan Pulse Rate [Pulse Oximeter 71 Right] Pulse Rate 82 Respiratory Rate 14 Blood Pressure [Left Arm] 164/74 Blood Pressure [Right Arm] 125/56 Pulse Ox 94 Oxygen Flow Rate 1 Oxygen Delivery Method Room Air Height 5 ft 6 in Weight 123 lb 11.2 oz - General General Appearance: No Acute Distress, Cooperative, Thin - Head Head Exam: Normal Inspection, Atraumatic - Eye Eye Exam: POSITIVE: Normal Appearance - ENT ENT Exam: POSITIVE: Normal Exam - Neck Neck Exam: Normal Inspection - Respiratory Respiratory Exam: POSITIVE: Clear to Auscultation - Bilaterally - Cardiovascular Cardiovascular Exam: POSITIVE: RRR - GI/Abdominal GI/Abdominal Exam: POSITIVE: Normal Bowel Sounds, Non Tender, Non Distended, Soft, No Organomegaly - Rectal Rectal Exam: POSITIVE: Deferred - External Exam: POSITIVE: Deferred - Extremities Additional Extremities Exam Details: She is wearing a brace on the right. - Back Back Exam: POSITIVE: Normal Inspection - Neurological Neurological Exam: POSITIVE: Alert, Normal Gait, CN II-XII Intact, Speech Intact / Clear, Moves All Extremities Equally - Psychiatric Psychiatric Exam: POSITIVE: Normal Affect - Integumentary Integumentary Exam: POSITIVE: Normal Color
== END 2017-05-28 11:04 | disposition swing bed (61) | DRG 561 ==
LOC: ER 16:20 → OPS 19:41 → MED/SURG 20:00
PROVIDERS: ADMIT Orthopaedic Surgery; ATTEND Family Medicine